=== PATIENT | female | born 1970 | race African-American/Black ===

== ENCOUNTER 2023-09-16 06:48 | Emergency (ER) | payer MEDICAID ==
[~2023-09-16] VITALS: Ht 160 cm; Wt 57.6 kg
[2023-09-16] MEDS ORDERED: IBUP-1955 PO (07:54)
[2023-09-16] MEDS ORDERED: ACETAMINOPHEN 325 MG TABLET ONE (08:00)
[2023-09-16] MEDS ORDERED: IBUPROFEN 600 MG TABLET ONE (08:01)
[2023-09-16] MEDS: ACETAMINOPHEN 325 MG TABLET PO ONE (08:05)
[2023-09-16] MEDS: IBUPROFEN 600 MG TABLET PO ONE (08:05)
[2023-09-16 08:08] VITALS: BP 141/69; TEMP 98.2; O2SAT 98
== END 2023-09-16 08:09 | disposition home or self-care (01) ==
LOC: ER 06:58
DX: S52.591A Other fractures of lower end of right radius, initial encounter for closed fracture (principal); W01.0XXA Fall on same level from slipping, tripping and stumbling without subsequent striking against object, initial encounter; Y93.89 Activity, other specified; Y92.89 Other specified places as the place of occurrence of the external cause; Y99.8 Other external cause status
CPT/HCPCS: 73110; A4606; A4663